=== PATIENT | female | born 1980 | race Caucasian/White ===

== ENCOUNTER → 2025-07-17 15:45 | Outpatient (REF) | payer OTHER, SELFPAY | LOC: PAVMRI 15:45 | PROVIDERS: ATTENDING PHYSICIAN Internal Medicine | DX: Z00.00 Encounter for general adult medical examination without abnormal findings (principal); Z86.69 Personal history of other diseases of the nervous system and sense organs; E66.3 Overweight | CPT/HCPCS: 70551 ==